=== PATIENT | female | born 1955 | race Caucasian/White ===

== ENCOUNTER 2017-02-06 13:45 | Emergency (ER) | payer OTHER ==
[~2017-02-06] VITALS: Ht 172.7 cm; Wt 72.6 kg
[~2017-02-06 13:45] MED LIST: HYZAAR 12.5 MG-1 TA2 PO; VITAMIN D1000 IU PO
[2017-02-06] MEDS ORDERED: LOSARTAN POTASS1 TA5 PO (14:22)
[2017-02-06] MEDS ORDERED: NAPROSYN500 MG PO (14:28)
== END 2017-02-06 16:03 | disposition home or self-care (01) ==
LOC: ED 13:45
DX: S52.101A Unspecified fracture of upper end of right radius, initial encounter for closed fracture (principal); R03.0 Elevated blood-pressure reading, without diagnosis of hypertension; Z79.899 Other long term (current) drug therapy; W18.39XA Other fall on same level, initial encounter; Y93.89 Activity, other specified; Y92.89 Other specified places as the place of occurrence of the external cause; Y99.8 Other external cause status